=== PATIENT | female | born 1995 | race Caucasian/White ===

== ENCOUNTER 2016-08-08 06:02 | Day surgery (SDC) | payer OTHER ==
[2016-08-07 09:07] VITALS: BMI 20.2
[~2016-08-08] VITALS: Ht 157.5 cm; Wt 47.3 kg
[~2016-08-08 06:02] MED LIST: CEFAZOLIN 2 GM/50 ML (PMX) 50 ML IVPB ONE; OMEP20CA16 PO
[2016-08-08 06:15] VITALS: BP 98/65; PULSE 67; RESP 18; Ht 157.5 cm; Wt 47.3 kg
[2016-08-08] MEDS ORDERED: BUPIVACAINE 0.5% (SDV) 30 ML INJ ONE (07:14)
[2016-08-08] MEDS ORDERED: POLYMYXIN/BACITRACIN 1L IRRIG ONE (07:14)
[2016-08-08] MEDS ORDERED: IBUP200C PO (07:21)
[2016-08-08] MEDS ORDERED: HYDR-3027 PO (07:21)
[2016-08-08] MEDS ORDERED: BUPIVACAINE 0.5% 30 ML VIAL INJ ONE (07:49)
[2016-08-08] MEDS ORDERED: LIDOCAINE 2% (MDV) 20 ML INJ INJ ONE (07:49)
[2016-08-08] MEDS ORDERED: FENTAnyl 50 MCG/ML VIAL ONE (07:50)
[2016-08-08] MEDS ORDERED: MIDAZOLAM 1 MG/ML 2 ML INJ ONE (07:50)
--- NOTE | 2016-08-08 07:51 | HPN ---
Date/Time of Note Date/Time of Note DATE: 08/08/16 TIME: 07:51 Interval H&P Admission Note Pt. seen H&P reviewed: No system changes ROCAEL MELENDREZ DPM Aug 08, 2016 07:51
[2016-08-08] MEDS ORDERED: LIDOCAINE 2% (MDV) 20 ML INJ ONE (07:54)
--- NOTE | 2016-08-08 08:18 | OPPN ---
Date/Time of Note Date/Time of Note DATE: 08/08/16 TIME: 08:16 Operative Report Preoperative Diagnosis Recurrent infected ingrown toenail of the right hallux Recurrent paronychia of the right hallux Right big toe pain Postoperative Diagnosis Recurrent infected ingrown toenail of the right hallux Recurrent paronychia of the right hallux Exostosis of right hallux Right big toe pain Operation/Procedure Performed Partial nail avulsion of the right hallux Surgical matricectomy of the right hallux Exostectomy of the right hallux Provider: ROCAEL MELENDREZ DPM Anesthesia: MAC Estimated blood loss: minimal Specimens Toenail, nail matrix and bone Grafts/Implants NONE Complications: None ROCAEL MELENDREZ DPM Aug 08, 2016 08:17
[2016-08-08] MEDS ORDERED: PROPOFOL 20 ML ONE (08:29)
[2016-08-08] MEDS ORDERED: LIDOCAINE 2% (SDV) 5 ML INJ ONE (08:29)
[2016-08-08] MEDS ORDERED: FENTAnyl 50 MCG/ML VIAL IV PRN (08:30)
[2016-08-08] MEDS ORDERED: ONDANSETRON 4 MG INJ IV PRN (08:30)
[2016-08-08] MEDS ORDERED: DIPHENHYDRAMINE 50 MG INJ IV PRN (08:30)
[2016-08-08] MEDS ORDERED: MEPERIDINE 25 MG INJ IV PRN (08:30)
[2016-08-08] MEDS ORDERED: morphine (1 MG/ML) 10ML SYRINGE IV PRN (08:30)
[2016-08-08] MEDS ORDERED: ONDANSETRON 4 MG INJ ONE (08:30)
[2016-08-08] MEDS ORDERED: CEFAZOLIN 1 GM INJ ONE (08:31)
[2016-08-08 08:39] VITALS: BP 102/59; PULSE 62; RESP 32
[2016-08-08 08:46] VITALS: BP 102/62; PULSE 60; RESP 16
[2016-08-08 08:49] VITALS: BP 103/58; PULSE 66; RESP 21
[2016-08-08 08:54] VITALS: BP 108/64; PULSE 64; RESP 16
[2016-08-08 09:14] VITALS: BP 108/67; PULSE 67; RESP 16
== END 2016-08-08 10:00 | disposition home or self-care (01) ==
LOC: SDS 06:02
PROVIDERS: ATTEND Podiatrist Foot & Ankle Surgery
DX: L03.031 Cellulitis of right toe (principal); L60.0 Ingrowing nail; M79.674 Pain in right toe(s)
CPT/HCPCS: 11730; 11750; 88304; J0690; J2250; J2405; J3010; L3260; Z7512; Z7610